=== PATIENT | female | born 1970 | race Hispanic/Latino ===

== ENCOUNTER 2019-11-09 06:51 | Day surgery (SDC) | payer OTHER ==
[~2019-11-09] VITALS: Ht 154.9 cm; Wt 74.4 kg
[2019-11-09] VITALS (11 sets, daily range): BP systolic 103–133; BP diastolic 60–81
[~2019-11-09 06:51] MED LIST: CETI10TA57 PO; FOLI20CA PO; MULT-1203 PO; SODIUM CHLORIDE 0.9% 1000ML 1,000 ML IV ONE; VITA100T3 PO
[2019-11-09] MEDS ORDERED: SODIUM CHLORIDE 0.9% 1000ML 1,000 ML IV ONE (07:06)
[2019-11-09] MEDS ORDERED: LIDOCAINE HCL 2% 20ML ONE (07:59)
[2019-11-09] MEDS ORDERED: PROPOFOL 10 MG/ML 20ML VIAL IV ONE (07:59)
== END 2019-11-09 09:50 | disposition home or self-care (01) ==
LOC: RAH 06:51 → DAH 06:51 → RAH 09:50
PROVIDERS: ATTEND Internal Medicine Gastroenterology
DX: Z12.11 Encounter for screening for malignant neoplasm of colon (principal); K57.30 Diverticulosis of large intestine without perforation or abscess without bleeding; K29.50 Unspecified chronic gastritis without bleeding; I10 Essential (primary) hypertension; K21.9 Gastro-esophageal reflux disease without esophagitis; K31.7 Polyp of stomach and duodenum; K22.8 Other specified diseases of esophagus; Z11.59 Encounter for screening for other viral diseases; Z79.899 Other long term (current) drug therapy; Z98.890 Other specified postprocedural states
CPT/HCPCS: 36415; 43239; 43251; 45378; A4215; A4221; A4222; A4223; A4606; A4620; A4663; J2704; J3490; J7030 ×2; U0003; G0121